=== PATIENT | female | born 1955 | race Caucasian/White ===

== ENCOUNTER → 2024-04-02 08:44 | Outpatient (REF) | payer OTHER, SELFPAY | LOC: HWWDC 08:44 | PROVIDERS: ATTENDING PHYSICIAN Family Medicine | DX: Z12.31 Encounter for screening mammogram for malignant neoplasm of breast (principal) | CPT/HCPCS: 77063; 77067 ==

== ENCOUNTER → 2025-05-11 09:02 | Outpatient (REF) | payer OTHER, SELFPAY | LOC: HWWDC 09:02 | PROVIDERS: ATTENDING PHYSICIAN Nurse Practitioner Adult Health; FAMILY PHYSICIAN Family Medicine | DX: Z78.0 Asymptomatic menopausal state (principal); Z12.31 Encounter for screening mammogram for malignant neoplasm of breast; Z01.419 Encounter for gynecological examination (general) (routine) without abnormal findings | CPT/HCPCS: 77063; 77067; 77080 ==